=== PATIENT | female | born 1970 | race African-American/Black ===

== ENCOUNTER 2022-04-12 04:04 | Emergency (ER) | payer BC ==
[~2022-04-12] VITALS: Ht 175.3 cm; Wt 89.8 kg
[2022-04-12 04:42] VITALS: BP_SYST 148
--- NOTE | 2022-04-12 05:00 | NUR ---
Patient to ER bed 4 to gown for evaluation. Side rails up. Report from wojciech cherry
--- NOTE | 2022-04-12 05:02 | NUR ---
PT COMPLAINING OF EPIGASTRIC PAIN, NAUSEA, DIARRHEA, AND HEAVY MENSTRUAL BLEEDING. AMBULATED WITH STEADY GAIT TO BED 4. NAD NOTED AT THIS TIME. RESP E/U. SPEAKING IN FULL CLEAR SENTENCES. AOX4. GCS15. SKIN WDL. HX ANEMIA, FIBROIDS
--- NOTE | 2022-04-12 05:02 | NUR ---
BLAKE Rebolledo at bedside examining patient.
--- NOTE | 2022-04-12 05:11 | NUR ---
BLAKE Rebolledo at bedside examining patient.
[2022-04-12] MEDS ORDERED: ONDANSETRON 4 MG ODT TAB PO ONE (05:15)
--- NOTE | 2022-04-12 05:18 | NUR ---
Orthostatic vital signs done. pr dr. peguero, laying and standing only okay.
[2022-04-12 06:32] LABS: CALCIUM 8.3 mg/dL (8.4-11.0); CREATININE 0.91 mg/dL (0.55-1.30); POTASSIUM 3.9 mmol/L (3.5-5.1)
[2022-04-12 06:35] LABS: HEMOGLOBIN 8.3 g/dL (12.0-16.0); MEAN CORPUSCULAR HEMOGLOBIN 23 pg (27-31); MEAN CORPUSCULAR HGB CONC 32 % (32-36); MEAN CORPUSCULAR VOLUME 73 fL (79.0-98.0); PLATELET COUNT (AUTO) 303 K/uL (130-430); RED BLOOD CELL COUNT(AUTO) 3.57 MIL/uL (4.2-6.2); RED CELL DISTRIBUTION WIDTH 18.8 % (9.0-15.0); WHITE BLOOD COUNT (AUTO) 6.7 K/uL (4.8-10.8)
[2022-04-12 06:39] LABS: ALBUMIN 3.1 g/dL (3.4-4.8); TOTAL BILIRUBIN 0.2 mg/dL (0.0-1.0)
[2022-04-12 06:40] LABS: PROTHROMBIN TIME 10.7 SECS (9.5-12.5)
--- NOTE | 2022-04-12 07:26 | NUR ---
Report given to LEYLA ESPOSITO
--- NOTE | 2022-04-12 07:27 | NUR ---
a/ox4 vss resting in bed , appears to be in no acute distress noted at this time.
[2022-04-12 07:55] VITALS: BP_SYST 135
--- NOTE | 2022-04-12 07:55 | NUR ---
Patient given written and verbal discharge instructions and verbalizes understanding. ER MD discussed with patient the results and treatment provided. Patient in stable condition. ID arm band removed. Rx of given. Patient educated on pain management and to follow up with PMD. Pain Scale . Opportunity for questions provided and answered. Medication side effect fact sheet provided.
--- NOTE | 2022-04-12 07:57 | NUR ---
PT VSS VERBALIZED UNDERSTANDING OF DC INSTRUCTIONS, AMBULATED WITH STEADY GAIT.
== END 2022-04-12 07:55 | disposition home or self-care (01) ==
LOC: SED 04:04
DX: N93.8 Other specified abnormal uterine and vaginal bleeding (principal); R11.0 Nausea; R19.7 Diarrhea, unspecified; I10 Essential (primary) hypertension; F17.200 Nicotine dependence, unspecified, uncomplicated; Z79.899 Other long term (current) drug therapy
CPT/HCPCS: 36415; 80053; 83051; 85014; 85048; 85049; 85610; 86886; 86900; 86901; 99283; Q0162